=== PATIENT | male | born 1975 | race Caucasian/White ===

== ENCOUNTER 2024-06-06 11:28 | Outpatient (CLI) | payer OTHER, SELFPAY ==
--- NOTE | ~2024-06-06 | US_ITS ---
US scrotum doppler INDICATION: Bilateral testicular pain TECHNIQUE: Testicular sonogram utilizing grayscale and color Doppler FINDINGS: The testes are normal in size and appearance. No focal lesions are seen. There are punctat e echogenic foci in the testicles, consistent with testicular microlithiasis. The right testes measur es 3.5 x 3.3 x 2.6 centimeters, and the left testis measures 4.1 x 2.6 x 2.9 cm cm. There is normal v ascular flow to both testes. The right and left epididymides appear normal. There are small bilateral hydroceles. IMPRESSION: 1. Small bilateral hydroceles. 2: Testicular microlithiasis. Reviewed, dictated and finalized at location B.
== END 2024-06-06 11:29 | disposition home or self-care (01) ==
PROVIDERS: PCP Internal Medicine; Visit Provider Internal Medicine
DX: N43.3 Hydrocele, unspecified (principal); N50.89 Other specified disorders of the male genital organs; N45.1 Epididymitis
CPT/HCPCS: 76870; 93976

== ENCOUNTER 2024-06-10 15:18 | Outpatient (CLI) | payer OTHER, SELFPAY ==
--- NOTE | ~2024-06-10 | US_ITS ---
US pelvic limited 06/10/2024 15:35 Indication: Urinary retention Procedure: High-resolution Limited ultrasound of the pelvis using transabdominal technique Comparison: No prior studies for comparison. Findings: Bladder wall is unremarkable. Bladder moderately distended. Prevoid volume is 227 cc. Post void volume is 51 cc. Impression: 1: Small post void volume measuring 51 cc. Reviewed, dictated and finalized at location B. Impression: 1: Small post void volume measuring 51 cc.
== END 2024-06-10 15:19 | disposition home or self-care (01) ==
LOC: MICIMG 15:18
PROVIDERS: PCP Internal Medicine; Visit Provider Internal Medicine
DX: R33.9 Retention of urine, unspecified (principal)
CPT/HCPCS: 76857

== ENCOUNTER 2024-10-24 14:55 | Outpatient (CLI) | payer OTHER, SELFPAY ==
--- NOTE | ~2024-10-24 | CT_ITS ---
CT of the Abdomen and Pelvis: Indication: Pelvic pain Technique: 2.5 mm axial scans were obtained through the abdomen and pelvis following intravenous adm inistration of 100 cc of Omnipaque 350. Dose reduction technique was used on this scan by utilizing a utomated exposure control and iterative reconstruction technique. The dose-length product (DLP) was 7 13.34 mGy-cm. Findings: Scans through the lung bases are unremarkable. The liver, spleen, pancreas, gallbladder, adrenals and kidneys are within normal limits. No evidence of aortic aneurysm. No lymphadenopathy. No bowel obstruction or bowel wall thickening. There is no evidence to suggest acute appendicitis. Images through the pelvis were performed. Urinary bladder unremarkable. No pelvic mass seen. No ascit es. Impression: No significant abnormalities seen. Reviewed, dictated and finalized at location . Impression: No significant abnormalities seen.
== END 2024-10-24 14:56 | disposition home or self-care (01) ==
LOC: MICIMG 14:57
PROVIDERS: PCP Internal Medicine; Visit Provider Internal Medicine
DX: R10.2 Pelvic and perineal pain (principal)
CPT/HCPCS: 74177; Q9967